=== PATIENT | male | born 1950 | race Caucasian/White ===

== ENCOUNTER → 2016-11-20 | Outpatient (CLI) | payer MEDICARE, OTHER ==
[~2016-11-20] MED LIST: ALBU0.632 IH; ASCO500T6 PO; ASP81TEC PO; ASPI-86; ATOR20TA66 PO; B CO1CAP PO; BUDE6HFA IH; C250T; CETI10TA20 PO; CHOL500044 PO; CLOB15CR3 TP; COQ10 PO; ECON30CR9 TP; FEXO180T84 PO; FINA5TAB6 PO; FLUT16SP22 NSEACH; GNT.3OP5 OP; GUAI118L16 PO; HYDR-3584 PO; HYDR480S10 PO; IBUP-1779 PO; IBUP-30 PO; LA/L175C; LISI1TAB; MONT10TA24 PO; MULT-382 PO; MULTIVITAMIN GUMMIE PO; NAPR220T76; OMEG1CAP PO; OMEP20CA6; OMEP40CA36 PO; OMG1KC; PRAV40TA PO; RT-ALBUTEROL SULF 2.5 MG/3 ML PRE-MIX VIAL INH ONE; TAMS0.4C2 PO; TRAM-42 PO; VALS1TAB76 PO; VITAMIN C GUMMIE PO; [UNRECOGNIZED DRUG - CODE] PO
--- OUTSIDE RECORDS SUMMARY | 2016-11-20 12:27 | XMS REPORT | Continuity of Care Document ---
Author Author [facility] Organization [facility] Address Unknown Phone Unavailable Care Team Providers Care Contracting Specialist Name Role Phone PCP Unavailable Source Comments Some departments are not documenting in the electronic medical record. If you do not see the information that you expected, contact Release of Information in the Health Information Management department at [phone] for further assistance in locating additional records.[facility] Active Allergies and Adverse Reactions Allergen Noted Date Severity Reactions Comments Lamisil 04/27/2015 Medium RASH minocycline in combination Lipitor 04/27/2015 Low COUGH Current Medications Prescription Sig. Disp. Refills Start End Date Status Date fexofenadine(+) (COSME) Take 180 mg by mouth Active 180 mg tablet daily. aspirin EC 81 mg tablet Take 81 mg by mouth Active daily. clobetasol (TEMOVATE) Apply to affected area Active 0.05 % topical cream twice daily. Coenzyme Q10 400 mg cap Take 400 mg by mouth. Active finasteride (PROSCAR) 5 Take 5 mg by mouth daily. Active mg tablet fluticasone (FLONASE) 50 Apply 2 Sprays to each Active mcg/actuation nasal spray nostril as directed daily. ibuprofen (MOTRIN) 600 mg Take 600 mg by mouth Active tablet every 6 hours as needed for Pain. naproxen sodium(+) Take 220 mg by mouth. Active (ALEVE) 220 mg tablet Indications: PRN [place]-3 Acid Ethyl Esters Take 2 g by mouth daily. Active (LOVAZA) 1 gram cap montelukast (SINGULAIR) Take 10 mg by mouth at Active 10 mg tablet bedtime daily. multivit with min-folic Take by mouth. Active acid 200 mcg chew nystatin (MYCOSTATIN) Apply to affected area Active 100,000 unit/g topical twice daily. cream omeprazole DR(+) Take 40 mg by mouth Active (PRILOSEC) 40 mg capsule daily. pravastatin (PRAVACHOL) Take 40 mg by mouth Active 40 mg tablet daily. budesonide/formoterol Inhale 2 Puffs by mouth Active (SYMBICORT) 160/4.5 mcg twice daily. HFAA inhalation tamsulosin (FLOMAX) 0.4 Take 0.4 mg by mouth Active mg capsule daily after dinner. valsartan/hydrochlorothia Take by mouth daily. Active zide (DIOVAN HCT) 160/25 mg tablet calcium phosphate-vitamin Take by mouth. Active D2 100 mg calcium -100 unit chew VITAMIN D-3 5,000 unit Take by mouth. Active tab hydrOXYzine (ATARAX) 10 Take 10 mg by mouth three Active mg tablet times daily as needed for Itching. triamcinolone acetonide Apply to affected area Active (KENALOG) 0.1 % topical twice daily. cream Active Problems Not on file Social History Tobacco Use Types Packs/Day Years Used Date Never Smoker Smokeless Tobacco: Never Used Alcohol Use Drinks/Week oz/Week Comments No 0 Standard 0.0 drinks or equivalent Last Filed Vital Signs Vital Sign Reading Time Taken Blood Pressure - - Pulse - - Temperature - - Respiratory Rate - - Height 1.727 m (5' 8") 04/27/2015 2:23 PM CDT Weight 115.214 kg (254 lb) 04/27/2015 2:23 PM CDT Body Mass Index 38.63 04/27/2015 2:23 PM CDT Oxygen Saturation - - Plan of Care Health Maintenance Due Date Last Done Comments Physical (Comprehensive) 1955 Exam Pertussis Vaccine 1959 Tetanus Vaccine 1965 Colorectal Cancer 1998 Screening Shingles Vaccine 2008 Prevnar/Pneumovax (#1) 2013 Influenza Vaccine 05/23/2016 Results from Last 3 Months Not on file
== END ==
LOC: RT 12:23
PROVIDERS: ATTEND Nurse Practitioner Family
DX: J45.909 Unspecified asthma, uncomplicated (principal); R06.00 Dyspnea, unspecified
CPT/HCPCS: 94060; 94640; 94726; 94729

== ENCOUNTER → 2017-10-01 | Outpatient (CLI) | payer MEDICARE, OTHER ==
[~2017-10-01] MED LIST changes: -RT-ALBUTEROL SULF 2.5 MG/3 ML PRE-MIX VIAL INH ONE
== END ==
LOC: LAB 10:58
PROVIDERS: ATTEND Urology
DX: N40.1 Benign prostatic hyperplasia with lower urinary tract symptoms (principal)
CPT/HCPCS: 36415; 84153

== ENCOUNTER → 2018-04-20 | Outpatient (CLI) | payer MEDICARE, OTHER | LOC: LAB 13:54 | PROVIDERS: ATTEND Urology | DX: R97.20 Elevated prostate specific antigen [PSA] (principal) | CPT/HCPCS: 36415; 84153 ==

== ENCOUNTER 2019-07-22 15:10 | Outpatient (CLI) | payer MEDICARE, OTHER ==
[~2019-07-22] VITALS: Ht 172.7 cm; Wt 120.5 kg
[2019-07-22] MEDS ORDERED: FEXO-46 PO (15:23)
[2019-07-22] MEDS ORDERED: OMEP40CA36 PO (15:23)
[2019-07-22] MEDS ORDERED: LOSA1TAB23 PO (15:23)
[2019-07-22] MEDS ORDERED: ASPI-999 PO (15:23)
[2019-07-22] MEDS ORDERED: BUDE10.2 IH (15:23)
[2019-07-22] MEDS ORDERED: MULT-178 PO (15:23)
[2019-07-22] MEDS ORDERED: VITA-93 PO (15:23)
[2019-07-22] MEDS ORDERED: OMEG1CAP PO (15:23)
[2019-07-22] MEDS ORDERED: UBID100C17 PO (15:23)
[2019-07-22] MEDS ORDERED: MONT10TA24 PO (15:23)
[2019-07-22] MEDS ORDERED: NF-SOLIF5T PO (15:26)
== END 2019-07-22 15:25 | disposition home or self-care (01) ==
LOC: PREOP 15:10
PROVIDERS: ATTEND Surgery
DX: Z01.818 Encounter for other preprocedural examination (principal)

== ENCOUNTER → 2019-10-12 | Outpatient (CLI) | payer MEDICARE, OTHER ==
[~2019-10-12] MED LIST changes: +ASPI-999 PO; +BUDE10.2 IH; +FEXO-46 PO; +LOSA1TAB23 PO; +MULT-178 PO; +NF-SOLIF5T PO; +OMEP40CA27 PO; +UBID100C17 PO; +VITA-93 PO
== END ==
LOC: LAB 16:17
PROVIDERS: ATTEND Urology
DX: N40.0 Benign prostatic hyperplasia without lower urinary tract symptoms (principal)
CPT/HCPCS: 36415; 84153

== ENCOUNTER → 2020-06-13 | Outpatient (CLI) | payer MEDICARE, OTHER ==
[~2020-06-13] MED LIST changes: +ASCO500T17 PO; -ASCO500T6 PO; -CETI10TA20 PO; +CETI10TA49 PO; +MONT10TA26 PO
== END ==
LOC: LABNPT 05:56
PROVIDERS: ATTEND Family Medicine
DX: U07.1 COVID-19 (principal); J06.9 Acute upper respiratory infection, unspecified; K29.70 Gastritis, unspecified, without bleeding
CPT/HCPCS: 87635

== ENCOUNTER 2020-06-16 08:58 | Inpatient (IN) | payer MEDICARE, OTHER ==
[~2020-06-16] VITALS: Ht 172 cm; Wt 122.6 kg
[2020-06-16] VITALS (13 sets, daily range): BP systolic 102–160; BP diastolic 61–90
[2020-06-16] MEDS ORDERED: NS IV 1000 ML 1,000 ML ONE (09:13)
[2020-06-16] MEDS ORDERED: NS IV 1000 ML 1,000 ML IV SCH ×3 (09:39→13:15)
[2020-06-16 09:45] LABS: BASOPHILS % (AUTO) 0 % (0-10); HEMOGLOBIN 12.9 g/dL (13.3-17.7); PLATELET COUNT 138 10^3/uL (130-400)
[2020-06-16 09:47] LABS: EOSINOPHILS % (AUTO) 0 % (0-10); HEMATOCRIT 37 % (40-54); LYMPHOCYTES # (AUTO) 0.6 10^3/uL (1.0-4.0); LYMPHOCYTES % (AUTO) 9 % (12-44); MEAN CORPUSCULAR HEMOGLOBIN 30 pg (25-34); MEAN CORPUSCULAR HGB CONC 35 g/dL (32-36); MEAN CORPUSCULAR VOLUME 87 fL (80-99); MEAN PLATELET VOLUME 11.4 fL (9.0-12.2); MONOCYTES # (AUTO) 0.4 10^3/uL (0.0-1.0); MONOCYTES % (AUTO) 7 % (0-12); NEUTROPHILS # (AUTO) 5.2 10^3/uL (1.8-7.8); NEUTROPHILS % (AUTO) 83 % (42-75); WHITE BLOOD COUNT 6.3 10^3/uL (4.3-11.0)
[2020-06-16] MEDS ORDERED: LACTATED RINGERS 1,000 ML IV ONE ×3 (09:48→14:17)
--- NOTE | 2020-06-16 09:50 | NUR ---
B/P 70/54 DR NOTIFIED AND 2ND LITER OF FLUIDS TO BE STARTED
[2020-06-16 09:52] LABS: ALBUMIN 3.5 GM/DL (3.2-4.5); POTASSIUM 2.8 MMOL/L (3.6-5.0)
[2020-06-16 09:53] LABS: CALCIUM 8.1 MG/DL (8.5-10.1)
[2020-06-16 09:55] LABS: TOTAL PROTEIN 6.5 GM/DL (6.4-8.2)
[2020-06-16 09:56] LABS: BILIRUBIN,TOTAL 0.8 MG/DL (0.1-1.0)
[2020-06-16 09:58] LABS: CREATININE SERUM 1.39 MG/DL (0.60-1.30); FIBRIN DEGRADATION PRODUCTS 0.88 UG/ML (0.00-0.49); PROTHROMBIN TIME PATIENT 13.3 SEC (12.2-14.7)
--- NOTE | 2020-06-16 10:09 | NUR ---
ORAL TEMP AT THIS X. 99.3
[2020-06-16] MEDS ORDERED: POTASSIUM CL 10MEQ/50ML IVPB 50 ML IV ONE (10:15)
[2020-06-16] MEDS ORDERED: KETOROLAC 30 MG/ML VIAL IVP ONE (10:15)
--- NOTE | 2020-06-16 10:34 | Diagnostic Imaging Report ---
INDICATION: Sepsis, COVID Portable chest 10:13 AM There is infiltrate in the central portion of left lung. Right lung is clear. There are no effusions or pneumothoraces. IMPRESSION: Patchy infiltrate left midlung consistent with pneumonia Dictated by: Dictated on workstation # [id number]
[2020-06-16] MEDS ORDERED: HOLD METFORMIN - RECEIVED CONTRAST 20 ML VIAL IV SCH (10:45)
[2020-06-16] MEDS ORDERED: NS 100 ML (IVPB) BAG IV ONE (10:45)
[2020-06-16] MEDS ORDERED: CEFEPIME INJECTION 2,000 MG in WATER (STERILE) FOR INJECTION 20 ML IV ONE (10:45)
[2020-06-16] MEDS ORDERED: CATHETER FLUSH 10 ML SYR IV PRN ×2 (10:45→13:15)
[2020-06-16] MEDS ORDERED: IOHEXOL 350 MG/ML 100 ML (OMNIPAQUE 350) VIAL IV ONE (10:45)
--- NOTE | 2020-06-16 11:58 | ED General ---
General Chief Complaint: Cough/Cold/Flu Symptoms Stated Complaint: COVID+;HIGH FEVER Nursing Triage Note: PT TO ROOM 10 PT COVID + HAS BEEN SICK SINCE LAST FRIDAY. PT HAS HAD FEVER THIS AM, EXTREMELY WEAK AND HAS SEVERE L SHOULDER PAIN 05/01. STATE HAS LOST #20 SINCE SICK Nursing Sepsis Screen: No Definite Risk Source of Information: Patient Exam Limitations: No Limitations History of Present Illness Date Seen by Provider: Jun 16, 2020 Time Seen by Provider: 09:05 Initial Comments This 69-year-old gentleman presents to the emergency room with primary complaint of shoulder pain. However, he tested positive for COVID 19 and has been ill for a little over a week with COVID-19 symptoms. He is found to be hypotensive and hypoxic upon arrival. He is noted to have a 20 pound weight loss during his illness and states he has had very poor oral intake. He is alert and oriented at this time. He is febrile. Allergies and Home Medications Allergies Coded Allergies: minocycline (Verified Allergy, Unknown, RASH AND A COUGH, 06/13/15) Home Medications Ascorbic Acid 500 Mg Tablet, 500 MG PO DAILY, (Reported) Aspirin 81 Mg Tab.chew, 81 MG PO DAILY, (Reported) Atorvastatin Calcium 20 Mg Tablet, 20 MG PO DAILY, (Reported) Budesonide/Formoterol Fumarate 10.2 Gm Hfa.aer.ad, 2 PUFF IH BID, (Reported) Cholecalciferol (Vitamin D3) 5,000 Unit Tablet, 5,000 UNIT PO DAILY, (Reported) Fexofenadine HCl 180 Mg Tablet, 180 MG PO DAILY, (Reported) Fluticasone Propionate 16 Gm [place].susp, 2 SPR NSEACH BID, (Reported) Hydroxyzine HCl 10 Mg Tablet, 10 MG PO QID PRN for ITCHING, (Reported) Ibuprofen 400 Mg Tablet, 400 MG PO Q6H PRN for PAIN, (Reported) Losartan/Hydrochlorothiazide 1 Each Tablet, 1 EACH PO DAILY, (Reported) Montelukast Sodium 10 Mg Tablet, 10 MG PO HS, (Reported) Multivitamin 1 Each Tablet, 1 EACH PO DAILY, (Reported) [place]-3 Acid Ethyl Esters 1 Gm Capsule, 1 GM PO BID, (Reported) Omeprazole 40 Mg Capsule.dr, 40 MG PO DAILY, (Reported) Solifenacin Succinate 5 Mg Tablet, 5 MG PO DAILY, (Reported) Ubidecarenone 100 Mg Capsule, 100 MG PO DAILY, (Reported) Vitamin B Complex 1 Each Tablet, 1 EACH PO DAILY, (Reported) Patient Home Medication List Home Medication List Reviewed: Yes Review of Systems Review of Systems Constitutional: see HPI EENTM: other (dry mucous membranes) Respiratory: see HPI Cardiovascular: see HPI Gastrointestinal: see HPI Genitourinary: no symptoms reported Musculoskeletal: no symptoms reported Skin: no symptoms reported Psychiatric/Neurological: No Symptoms Reported Hematologic/Lymphatic: No Symptoms Reported Immunological/Allergic: no symptoms reported Past Nkguccl-Kdvigw-Rwsuhm Hx Past Med/Social Hx: Reviewed Nursing Past Med/Soc Hx Patient Social History Alcohol Use: Denies Use Recreational Drug Use: No Smoking Status: Former Smoker Former Smoker, Quit: Jul 22, 1978 Recent Foreign Travel: No Contact w/Someone Who Travel: No Recent Infectious Disease Expo: No Recent Hopitalizations: No Physical Abuse: No Sexual Abuse: No Immunizations Up To Date Date of Pneumonia Vaccine: Sep 22, 2007 Date of Influenza Vaccine: Jun 22, 2019 Seasonal Allergies Seasonal Allergies: Yes Past Medical History Surgeries: Yes (ING HERNIA, HEMORRHOIDECTOMY, cyst removed from finger) Abdominal Respiratory: Yes Asthma, Sleep Apnea, COPD Currently Using CPAP: Yes Cardiac: Yes Coronary Artery Disease, High Cholesterol, Hypertension Neurological: No Genitourinary: No Gastrointestinal: Yes Gastroesophageal Reflux Musculoskeletal: Yes Arthritis Endocrine: No HEENT: No Cancer: No Psychosocial: No 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 oz. 118.256732iu; 38.00 BMI Method: General Appearance: No Apparent Distress, WD/WN HEENT: PERRL/EOMI, Normal ENT Inspection, Other (mucous membranes dry) Neck: Normal Inspection Respiratory: No Accessory Muscle Use, No Respiratory Distress, Crackles (bibasilar) Cardiovascular: Regular Rate, Rhythm, No Edema, No Murmur, Normal Peripheral Pulses Gastrointestinal: Normal Bowel Sounds, Non Tender, Soft Extremity: Normal Inspection, No Calf Tenderness, No Pedal Edema, Other ( tenderness around the musculature inferior and medial to the left scapula) Neurologic/Psychiatric: Alert, Oriented x3, No Motor/Sensory Deficits, Normal 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 Labs not consistent with sepsis Possible Source: Pulmonary Lactate Level 06/16/20 09:11: Lactic Acid Level 1.39 Time of Focused Exam: 12:35 Respiratory: Crackles (both bases), Decreased Breath Sounds Cardiovascular: Regular Rate, Rhythm, No Edema, No Murmur, Normal Peripheral Pulses Capillary Refill: Less Than 3 Seconds Peripheral Pulses: 2+ Radial Pulses (R) Skin: normal color, warm/dry Lactic Acid Level Within 3hrs of presentation: Admin fluids, Admin 30ml/kg IBW due to BMI>30, Admin ABX, Blood cultures prior to ABX's, Focus exam, Lactate level Progress/Results/Core Measures Suspected Sepsis Recent Fever Within 48 Hours: Yes Infection Criteria Present: Suspected New Infection New/Unexplained Altered Menta: No Sepsis Screen: No Definite Risk SIRS Temperature: Pulse: 62 Respiratory Rate: 20 Laboratory Tests 06/16/20 09:11: White Blood Count 6.3 Blood Pressure 101 /64 Mean: 76 06/16/20 09:11: Lactic Acid Level 1.39 Laboratory Tests 06/16/20 09:11: Creatinine 1.39H, INR Comment 1.0, Platelet Count 138, Total Bilirubin 0.8 Results/Orders Lab Results Laboratory Tests Test 06/16/20 09:11 Range/Units White Blood Count 6.3 4.3-11.0 10^3/uL Red Blood Count 4.30 4.30-5.52 10^6/uL Hemoglobin 12.9 L 13.3-17.7 g/dL Hematocrit 37 L 40-54 % Mean Corpuscular Volume 87 80-99 fL Mean Corpuscular Hemoglobin 30 25-34 pg Mean Corpuscular Hemoglobin Concent 35 32-36 g/dL Red Cell Distribution Width 12.9 10.0-14.5 % Platelet Count 138 130-400 10^3/uL Mean Platelet Volume 11.4 9.0-12.2 fL Immature Granulocyte % (Auto) 1 % Neutrophils (%) (Auto) 83 H 42-75 % Lymphocytes (%) (Auto) 9 L 12-44 % Monocytes (%) (Auto) 7 0-12 % Eosinophils (%) (Auto) 0 0-10 % Basophils (%) (Auto) 0 0-10 % Neutrophils # (Auto) 5.2 1.8-7.8 10^3/uL Lymphocytes # (Auto) 0.6 L 1.0-4.0 10^3/uL Monocytes # (Auto) 0.4 0.0-1.0 10^3/uL Eosinophils # (Auto) 0.0 0.0-0.3 10^3/uL Basophils # (Auto) 0.0 0.0-0.1 10^3/uL Immature Granulocyte # (Auto) 0.0 0.0-0.1 10^3/uL Prothrombin Time 13.3 12.2-14.7 SEC INR Comment 1.0 0.8-1.4 Activated Partial Thromboplast Time 36 H 24-35 SEC D-Dimer 0.88 H 0.00-0.49 UG/ML Sodium Level 138 135-145 MMOL/L Potassium Level 2.8 L 3.6-5.0 MMOL/L Chloride Level 101 98-107 MMOL/L Carbon Dioxide Level 24 21-32 MMOL/L Anion Gap 13 5-14 MMOL/L Blood Urea Nitrogen 20 H 7-18 MG/DL Creatinine 1.39 H 0.60-1.30 MG/DL Estimat Glomerular Filtration Rate 50 BUN/Creatinine Ratio 14 Glucose Level 142 H 70-105 MG/DL Lactic Acid Level 1.39 0.50-2.00 MMOL/L Calcium Level 8.1 L 8.5-10.1 MG/DL Corrected Calcium 8.5 8.5-10.1 MG/DL Total Bilirubin 0.8 0.1-1.0 MG/DL Aspartate Amino Transf (AST/SGOT) 42 H 5-34 U/L Alanine Aminotransferase (ALT/SGPT) 33 0-55 U/L Alkaline Phosphatase 82 40-136 U/L Lactate Dehydrogenase 367 H 125-220 U/L C-Reactive Protein High Sensitivity 7.77 H 0.00-0.50 MG/DL Total Protein 6.5 6.4-8.2 GM/DL Albumin 3.5 3.2-4.5 GM/DL Procalcitonin 0.06 <0.10 NG/ML My Orders Orders - RALF BLUE MD Ns Iv 1000 Ml (Sodium Chloride 0.9%) (06/16/20 09:13) Cbc With Automated Diff (06/16/20 09:37) Comprehensive Metabolic Panel (06/16/20 09:37) Blood Culture (06/16/20 09:37) Sputum Culture (06/16/20 09:37) Urinalysis (06/16/20 09:37) Urine Culture (06/16/20 09:37) Protime With Inr (06/16/20 09:37) Partial Thromboplastin Time (06/16/20 09:37) Chest 1 View, Ap/Pa Only (06/16/20 09:37) Ed Iv/Invasive Line Start (06/16/20 09:37) Ed Iv/Invasive Line Start (06/16/20 09:37) Vital Signs Adult Sepsis Patie Q15M (06/16/20 09:37) O2 (06/16/20 09:37) Remove Rings In Anticipation O (06/16/20 09:37) Lactic Acid Analyzer (06/16/20 09:37) Procalcitonin (Pct) (06/16/20 09:37) Hs C Reactive Protein (06/16/20 09:37) LDH (06/16/20 09:37) Fibrin Degradation Products (06/16/20 09:37) Ns Iv 1000 Ml (Sodium Chloride 0.9%) (06/16/20 09:39) Lactated Ringers (Lr 1000 Ml Iv Solution (06/16/20 09:52) Lactated Ringers (Lr 1000 Ml Iv Solution (06/16/20 09:48) Potassium Cl 10meq/50ml Ivpb (Kcl 10 Meq (06/16/20 10:15) Ns Iv 1000 Ml (Sodium Chloride 0.9%) (06/16/20 10:04) Ketorolac Injection (Toradol Injection) (06/16/20 10:15) Ct Angio Chest W (06/16/20 10:41) Cefepime Injection (Maxipime Injection) (06/16/20 10:45) Iohexol Injection (Omnipaque 350 Mg/Ml 1 (06/16/20 10:45) Received Contrast (Hold Metformin- Contr (06/16/20 10:45) Sodium Chloride Flush (Catheter Flush Sy (06/16/20 10:45) Ns (Ivpb) (Sodium Chloride 0.9% Ivpb Bag (06/16/20 10:45) Dexamethasone Injection (Decadron Inje (06/16/20 12:00) Medications Given in ED Current Medications Medications Dose Ordered Sig/Sara Route Start Time Stop Time Status Last Admin Dose Admin Cefepime HCl 2000 mg/Sterile Water 20 ml @ 240 mls/hr ONCE ONCE IV 06/16/20 10:45 06/16/20 10:49 DC 06/16/20 11:23 240 MLS/HR Iohexol 100 ml ONCE ONCE IV 06/16/20 10:45 06/16/20 11:18 DC 06/16/20 11:19 100 ML Ketorolac Tromethamine 15 mg ONCE ONCE IVP 06/16/20 10:15 06/16/20 10:16 DC 06/16/20 10:22 15 MG Lactated Ringer's 1,000 ml @ 0 mls/hr Q0M ONCE IV 06/16/20 09:52 06/16/20 09:53 DC 06/16/20 09:55 1,000 MLS/HR Potassium Chloride 50 ml @ 50 mls/hr ONCE ONCE IV 06/16/20 10:15 06/16/20 11:14 DC 06/16/20 10:21 50 MLS/HR Sodium Chloride 100 ml ONCE ONCE IV 06/16/20 10:45 06/16/20 11:18 DC 06/16/20 11:19 80 ML Sodium Chloride 1,000 ml @ ud STK-MED ONCE .ROUTE 06/16/20 09:13 06/16/20 09:21 DC 06/16/20 09:20 1,000 MLS/HR Vital Signs/I&O 06/16/20 06/16/20 06/16/20 06/16/20 09:10 09:10 09:10 13:53 Temp 38.9 Pulse 62 51 Resp 20 B/P (MAP) 101/64 (76) Pulse Ox 96 96 O2 Delivery Nasal Cannula Nasal Cannula O2 Flow Rate 3.00 3.00 3.00 Capillary Refill : Less Than 3 Seconds Blood Pressure Mean: 76 Progress Note : Time: 11:55 Progress Note Patient was found to be hypoxic and hypotensive on initial assessment. He has received 2 L of IV fluid and is receiving his third liter. Blood pressure did respond and he is now normotensive. Hypokalemia was noted and is being replaced by IV potassium. Nasal cannula at 3-4 L was sufficient to resuscitate his hypoxia. Toradol was given for his shoulder pain which was helpful. Patient is being admitted to the ICU. Hypertension was felt to be related to volume status, especially since patient has lost 20 pounds since becoming ill. Septic shock was not felt likely since the protocol calcitonin and WBC were normal. Cefepime was ordered as a precaution until we can be certain that a secondary bacterial pneumonia is not present. Diagnostic Imaging Diagonstic Imaging: Xray Plain Films/CT/US/NM/MRI: chest Comments Chest x-ray viewed by me and report reviewed. See report below: NAME: SOFÍA ZAPATA [facility] REC#: [id number] PT STATUS: REG ER : 1950 PHYSICIAN: RALF BLUE MD ADMIT DATE: 06/16/20/ER Signed Date of Exam:06/16/20 CHEST 1 VIEW, AP/PA ONLY INDICATION: Sepsis, COVID Portable chest 10:13 AM There is infiltrate in the central portion of left lung. Right lung is clear. There are no effusions or pneumothoraces. IMPRESSION: Patchy infiltrate left midlung consistent with pneumonia Dictated by: Dictated on workstation # [id number] Dict: 06/16/20 1029 Trans: 06/16/20 1113 JOSE [id number] Interpreted by: CHRIS NAVARRO MD Electronically signed by: CHRIS NAVARRO MD 06/16/20 1113 Departure Communication (Admissions) Time/Spoke to Admitting Phy: 11:40 Dr. Núñez Time/Spoke to Consulting Phy: 11:45 Dr. Sykes Impression Primary Impression: COVID-19 Additional Impressions: Hypoxia Hypotension Qualified Codes: I95.89 - Other hypotension; E86.1 - Hypovolemia Hypovolemia Hypokalemia Shoulder pain Qualified Codes: M25.512 - Pain in left shoulder Disposition: ADMITTED INPATIENT Condition: Stable/Unchanged Admissions Decision to Admit Reason: Admit from ER (General) Decision to Admit/Date: Jun 16, 2020 Time/Decision to Admit Time: 09:15 Departure-Patient Inst. Referrals: MONSE FLORES DO (PCP/Family) Primary Care Physician Copy Copies To 1: MONSE FLORES JOSHUA T MD Jun 16, 2020 11:57
--- NOTE | 2020-06-16 13:05 | NUR ---
SOFÍA ZAPATA admitted to room CU1-1, with an admitting diagnosis of HYPOKIA, HYPOKALEMIA, COVID-19 +, on 06/16/20 from ER via WHEELCHAIR, accompanied by SINGH SAXENA AND PCT. SOFÍA ZAPATA introduced to surroundings, call light, bed controls, phone, TV, temperature control, lights, meal times, smoking policy, visitor policy, side rail policy, bathrooms and showers. Patient Rights given to patient in the handbook. SOFÍA ZAPATA verbalizes understanding that [facility] is not responsible for the loss or damage to any personal effects or valuables that are kept in the patients possession during their hospitalization.
[2020-06-16] MEDS ORDERED: ACETAMINOPHEN 500 MG TAB (TYLENOL) PO PRN (13:15)
[2020-06-16] MEDS ORDERED: RT-ALBUTEROL INHALER HFA (VENTOLIN HFA) 18 GM IH PRN (13:15)
[2020-06-16] MEDS ORDERED: IBUPROFEN TABLET 200 MG TAB PO PRN (13:15)
[2020-06-16] MEDS: POTASSIUM CL 10 MEQ/50 ML IVPB (PRE-MIX) IV SCH ×4 (13:18→18:19)
--- NOTE | 2020-06-16 13:58 | Pulmonary History & Physicial ---
History of Present Illness History of Present Illness Time Seen by Provider: 13:56 Date of Admission Allergies and Home Medications Allergies Coded Allergies: minocycline (Verified Allergy, Unknown, RASH AND A COUGH, 06/13/15) Home Medications Ascorbic Acid 500 Mg Tablet, 500 MG PO DAILY, (Reported) Aspirin 81 Mg Tab.chew, 81 MG PO DAILY, (Reported) Atorvastatin Calcium 20 Mg Tablet, 20 MG PO DAILY, (Reported) Budesonide/Formoterol Fumarate 10.2 Gm Hfa.aer.ad, 2 PUFF IH BID, (Reported) Cholecalciferol (Vitamin D3) 5,000 Unit Tablet, 5,000 UNIT PO DAILY, (Reported) Fexofenadine HCl 180 Mg Tablet, 180 MG PO DAILY, (Reported) Fluticasone Propionate 16 Gm [place].susp, 2 SPR NSEACH BID, (Reported) Hydroxyzine HCl 10 Mg Tablet, 10 MG PO QID PRN for ITCHING, (Reported) Ibuprofen 400 Mg Tablet, 400 MG PO Q6H PRN for PAIN, (Reported) Losartan/Hydrochlorothiazide 1 Each Tablet, 1 EACH PO DAILY, (Reported) Montelukast Sodium 10 Mg Tablet, 10 MG PO HS, (Reported) Multivitamin 1 Each Tablet, 1 EACH PO DAILY, (Reported) [place]-3 Acid Ethyl Esters 1 Gm Capsule, 1 GM PO BID, (Reported) Omeprazole 40 Mg Capsule.dr, 40 MG PO DAILY, (Reported) Solifenacin Succinate 5 Mg Tablet, 5 MG PO DAILY, (Reported) Ubidecarenone 100 Mg Capsule, 100 MG PO DAILY, (Reported) Vitamin B Complex 1 Each Tablet, 1 EACH PO DAILY, (Reported) Past Aqflsbh-[place]-Ftswpg Hx Patient Social History Alcohol Use: Denies Use Recreational Drug Use: No Smoking Status: Former Smoker Former Smoker, Quit: Jul 22, 1978 Recent Foreign Travel: No Contact w/Someone Who Travel: No Recent Infectious Disease Expo: No Recent Hopitalizations: No Physical Abuse: No Sexual Abuse: No Immunizations Up To Date Date of Pneumonia Vaccine: Jun 16, 2018 Date of Influenza Vaccine: May 16, 2020 Seasonal Allergies Seasonal Allergies: Yes Past Medical History Surgeries: Yes (ING HERNIA, HEMORRHOIDECTOMY, cyst removed from finger) Respiratory: Yes Asthma, Sleep Apnea, COPD Currently Using CPAP: Yes Cardiac: Yes Coronary Artery Disease, High Cholesterol, Hypertension Neurological: No Genitourinary: No Gastrointestinal: Yes Gastroesophageal Reflux Musculoskeletal: Yes Arthritis Endocrine: No HEENT: No Cancer: No Psychosocial: No 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 oz. 118.985659vg; 44.44 BMI Method: Respiratory: Crackles (both bases), Decreased Breath Sounds Cardiovascular: Regular Rate, Rhythm, No Edema, No Murmur, Normal Peripheral Pulses Capillary Refill: Less Than 3 Seconds Peripheral Pulses: 2+ Radial Pulses (R) Results Lab Laboratory Tests 06/16/20 09:11 Assessment/Plan Assessment/Plan Admission Dx COVID -19-- symptoms started 8 days ago -Start remdisivir and convalescent plasma -Pt understands these are EUA medications and consents to use. -Self proning -Decadron 6mg COPD -Breathing treatments -oxygen Hypokalemia -replace and repeat labs Admission Status: Inpatient Order (span 2 midnights) NILDA WHALEN DO Jun 16, 2020 13:58
[2020-06-16] MEDS ORDERED: REMDESIVIR INJ (NON-FORMULARY) 200 MG in NS (IVPB) 210 ML IV NR (14:00)
[2020-06-16] MEDS ORDERED: KCL 20 MEQ TAB (K-DUR) PO NR (14:00)
[2020-06-16] MEDS: ENOXAPARIN 40 MG/0.4 ML (LOVENOX) SYR SC SCH (14:29)
[2020-06-16] MEDS: LACTATED RINGERS 1,000 ML IV SCH ×2 (14:35→21:57)
--- NOTE | 2020-06-16 14:39 | NUR ---
THIS RN ATTEMPTED TO CALL PT'S . THE PHONE CALL WENT STRAIGHT TO VOICEMAIL. THIS RN WILL ATTEMPT TO CALL THE AGAIN AT A LATER TIME.
[2020-06-16] MEDS ORDERED: CETI10TA17 PO (15:36)
[2020-06-16] MEDS ORDERED: ASCO250T17 PO (15:36)
[2020-06-16] MEDS ORDERED: VITA1TAB17 PO (15:36)
[2020-06-16] MEDS ORDERED: ACET325C7 PO (15:36)
[2020-06-16] MEDS ORDERED: DOXA2TAB2 PO (15:36)
[2020-06-16] MEDS ORDERED: FISH1CAP15 PO (15:36)
[2020-06-16] MEDS ORDERED: ALBU18HF2 INH (15:36)
[2020-06-16] MEDS ORDERED: HYDR12.56 PO (15:36)
[2020-06-16] MEDS ORDERED: MULT-192 PO (15:36)
[2020-06-16] MEDS ORDERED: CHOL200074 PO (15:36)
--- NOTE | 2020-06-16 15:49 | NUR ---
SPOKE WITH THE PTS (TU FENG), & WENT THRU THE EXT MED HISTORY TO COMPLETE THE MED REC PTS WAS ABLE TO NAME ALL HIS MEDICATIONS WELL WHEN/HOW HE TAKES EACH [place] IS LISTED ON THE EXT MED HISTORY BUT ACCORDING TO TU FENG THIS HAS BEEN DISCONTINUED THE PT TAKING CETIRIZINE 10MG HS AND COSME 180MG DAILY PRN OTC MEDS: MTV GUMMY VIT B COMPLEX VIT C VIT D COQ10 FISH OIL COSME ASPIRIN 81 TYLENOL IBUPROFEN
[2020-06-16 20:05] LABS: ALBUMIN 3.4 GM/DL (3.2-4.5); CHLORIDE 107 MMOL/L (98-107); POTASSIUM 3.7 MMOL/L (3.6-5.0); SODIUM 140 MMOL/L (135-145)
[2020-06-16 20:08] LABS: GLUCOSE 167 MG/DL (70-105); TOTAL PROTEIN 6.3 GM/DL (6.4-8.2)
[2020-06-16 20:09] LABS: BILIRUBIN,TOTAL 0.5 MG/DL (0.1-1.0); CARBON DIOXIDE 21 MMOL/L (21-32)
[2020-06-16 20:11] LABS: ALKALINE PHOSPHATASE 78 U/L (40-136); CREATININE SERUM 1.14 MG/DL (0.60-1.30); GFR ESTIMATED > 60; PHOSPHORUS 1.5 MG/DL (2.3-4.7)
[2020-06-16 20:12] LABS: BUN/CREATININE RATIO 17
[2020-06-16 20:14] LABS: ALANINE AMINOTRANSFERASE 37 U/L (0-55); MAGNESIUM 1.5 MG/DL (1.6-2.4)
[2020-06-16] MEDS ORDERED: NS IV 500 ML 500 ML ONE (21:21)
[2020-06-17] VITALS (25 sets, daily range): BP systolic 105–155; BP diastolic 26–94
[2020-06-17] MEDS: LACTATED RINGERS 1,000 ML IV SCH (02:22)
[2020-06-17] MEDS: ENOXAPARIN 40 MG/0.4 ML (LOVENOX) SYR SC SCH ×2 (02:22→14:10)
[2020-06-17 04:39] LABS: CHLORIDE 108 MMOL/L (98-107); POTASSIUM 3.6 MMOL/L (3.6-5.0); SODIUM 142 MMOL/L (135-145)
[2020-06-17 04:40] LABS: CALCIUM 7.9 MG/DL (8.5-10.1); GLUCOSE 131 MG/DL (70-105)
[2020-06-17 04:42] LABS: CARBON DIOXIDE 22 MMOL/L (21-32)
[2020-06-17 04:44] LABS: CREATININE SERUM 0.91 MG/DL (0.60-1.30); GFR ESTIMATED > 60; PHOSPHORUS 2.1 MG/DL (2.3-4.7)
[2020-06-17 04:45] LABS: BUN/CREATININE RATIO 20
[2020-06-17 04:46] LABS: MAGNESIUM 1.5 MG/DL (1.6-2.4)
[2020-06-17 04:49] LABS: BASOPHILS % (AUTO) 0 % (0-10); EOSINOPHILS % (AUTO) 0 % (0-10); HEMATOCRIT 34 % (40-54); HEMOGLOBIN 11.5 g/dL (13.3-17.7); LYMPHOCYTES # (AUTO) 0.7 10^3/uL (1.0-4.0); LYMPHOCYTES % (AUTO) 16 % (12-44); MEAN CORPUSCULAR HEMOGLOBIN 30 pg (25-34); MEAN CORPUSCULAR HGB CONC 34 g/dL (32-36); MEAN CORPUSCULAR VOLUME 89 fL (80-99); MEAN PLATELET VOLUME 11.6 fL (9.0-12.2); MONOCYTES # (AUTO) 0.4 10^3/uL (0.0-1.0); MONOCYTES % (AUTO) 10 % (0-12); NEUTROPHILS # (AUTO) 3.3 10^3/uL (1.8-7.8); NEUTROPHILS % (AUTO) 74 % (42-75); PLATELET COUNT 136 10^3/uL (130-400); WHITE BLOOD COUNT 4.4 10^3/uL (4.3-11.0)
--- NOTE | 2020-06-17 05:25 | Pulmonary Progress Note ---
Subjective Time Seen by a Provider: 05:23 Subjective/Events-last exam No complications noted. Sepsis Event Evaluation Height, Weight, BMI Height: 5'8.00" Weight: 262lbs. oz. 118.829334au; 44.44 BMI Method: Focused Exam Lactate Level 06/16/20 09:11: Lactic Acid Level 1.39 Time of Focused Exam: 12:35 Exam Exam Vital Signs Date Time Temp Pulse Resp B/P (MAP) Pulse Ox O2 Delivery O2 Flow Rate FiO2 06/17/20 05:00 46 31 136/38 (70) 94 Nasal Cannula 3.00 06/17/20 04:00 46 15 137/73 (94) 95 Nasal Cannula 3.00 06/17/20 03:00 42 26 134/78 (96) 90 Nasal Cannula 3.00 06/17/20 02:00 48 19 145/74 (97) 94 Nasal Cannula 3.00 06/17/20 01:00 42 26 129/78 (95) 95 Nasal Cannula 3.00 06/17/20 01:00 60 06/17/20 00:49 36.6 52 18 135/71 93 Nasal Cannula 3.00 06/17/20 00:00 93 Nasal Cannula 3.00 06/17/20 00:00 36.6 06/17/20 00:00 62 14 135/71 (92) 94 Nasal Cannula 3.00 06/16/20 23:00 56 17 137/83 (101) 93 Nasal Cannula 3.00 06/16/20 22:44 Nasal Cannula 3.00 06/16/20 22:03 36.4 44 16 137/80 95 Nasal Cannula 1.00 06/16/20 22:00 49 22 137/80 (99) 90 Nasal Cannula 1.00 06/16/20 21:47 36.6 51 18 160/90 92 Nasal Cannula 1.00 06/16/20 21:00 51 32 160/90 (113) 93 Nasal Cannula 1.00 06/16/20 20:04 36.4 54 18 151/85 (107) 91 Nasal Cannula 1.00 06/16/20 20:00 91 Nasal Cannula 1.00 06/16/20 19:00 56 12 138/82 (100) 94 Nasal Cannula 1.00 06/16/20 19:00 57 06/16/20 18:52 94 1.00 06/16/20 18:01 37.1 Nasal Cannula 1.00 06/16/20 18:00 58 6 124/61 (82) 94 Nasal Cannula 1.00 06/16/20 17:00 59 16 102/63 (76) 93 Nasal Cannula 1.00 06/16/20 16:00 58 19 114/85 (95) 93 Nasal Cannula 1.00 06/16/20 16:00 94 Nasal Cannula 1.00 24 06/16/20 15:00 36.6 55 20 142/80 (100) 94 1.00 06/16/20 14:00 54 27 118/80 (93) 95 Nasal Cannula 2.00 06/16/20 13:56 96 Nasal Cannula 1.00 06/16/20 13:53 51 06/16/20 13:15 51 12 134/81 (98) 95 Nasal Cannula 2.00 06/16/20 12:55 54 18 103/68 98 Nasal Cannula 3.00 06/16/20 09:10 3.00 06/16/20 09:10 96 Nasal Cannula 3.00 06/16/20 09:10 38.9 62 20 101/64 (76) 96 Nasal Cannula 3.00 I & O 06/17/20 07:00 Intake Total 4570 ml Output Total 750 ml Balance 3820 ml Height & Weight Height: 5'8.00" Weight: 262lbs. oz. 118.248938bj; 44.44 BMI Method: General Appearance: No Apparent Distress, WD/WN HEENT: PERRL/EOMI, Normal ENT Inspection, Other (mucous membranes dry) Neck: Normal Inspection Respiratory: Crackles (both bases), Decreased Breath Sounds Cardiovascular: Regular Rate, Rhythm, No Edema, No Murmur, Normal Peripheral Pulses Capillary Refill: Greater Than 3 Seconds Peripheral Pulses: 2+ Radial Pulses (R) Extremity: Normal Inspection, No Calf Tenderness, No Pedal Edema, Other (t enderness around the musculature inferior and medial to the left scapula) Neurologic/Psychiatric: Alert, Oriented x3, No Motor/Sensory Deficits, Normal Mood/Affect, certified 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 -Self proning -Decadron 6mg Bradycardia - down into 30's -Consult cardiology -Check Troponins, and EKG COPD -Breathing treatments -oxygen Hypokalemia -replace and repeat labs NILDA WHALEN DO Jun 17, 2020 05:25
[2020-06-17] MEDS ORDERED: KCL 20 MEQ TAB (K-DUR) PO ONE (07:00)
[2020-06-17] MEDS: MAGNESIUM 1 GM/100 ML IVPB 100 ML IV SCH ×2 (07:54→07:55)
[2020-06-17] MEDS ORDERED: PANTOPRAZOLE 40 MG (PROTONIX) VIAL IV SCH (09:00)
[2020-06-17] MEDS ORDERED: PANTOPRAZOLE 40 MG (PROTONIX) TAB PO SCH (09:00)
[2020-06-17] MEDS: CEFEPIME 2,000 MG/SWFI 20 ML IV PUSH IV SCH ×4 (09:44→20:57)
[2020-06-17] MEDS: TROSPIUM 20 MG (SANCTURA) TAB PO SCH ×2 (09:45→15:40)
[2020-06-17] MEDS: FLUTICASONE NASAL SPRAY (FLONASE) 16 GM BTL NS SCH ×2 (09:56→21:12)
[2020-06-17] MEDS: ASPIRIN 81 MG CHEW (CHILDREN'S ASA) PO SCH (09:56)
[2020-06-17] MEDS: VITAMIN D3 25 MCG (1,000 UNITS) TABLET PO SCH (09:56)
[2020-06-17] MEDS ORDERED: CEFEPIME 2,000 MG/SWFI 20 ML IV PUSH IV SCH ×2 (10:00)
[2020-06-17] MEDS: REMDESIVIR INJ (NON-FORMULARY) 100 MG in NS (IVPB) 230 ML IV SCH (14:09)
--- NOTE | 2020-06-17 16:19 | Consultation-Cardiology ---
HPI-Cardiology Cardiology Consultation: Date of Consultation 06/17/20 Date of Admission Attending Physician Sarika Hodges DO Admitting Physician Sarika Hodges DO Consulting Physician Michael GAR MD HPI: Time Seen by a Provider: 14:00 Chief Complaint: bradycardia this is a 69-year-old gentleman who has history of COPD. He presented with shoulder discomfort. He has been having COVID-19 symptoms for around a weak. He was found to be COVID-19 positive. He was hypotensive and hypoxic on arrival. Started on oxygen through nasal cannula which improved oxygenation. patient is a former smoker. Brother has history of coronary disease. Review of Systems-Cardiology Review of Systems Constitutional: As described under HPI; No As described under HPI, No no symptoms reported, No chills, No fever, No lightheadedness; weight loss Eyes: No As described under HPI, No no symptoms reported, No blindness, No blurred vision, No contact lenses, No drainage, No decreased acuity, No foreign body sensation, No pain, No vision change Ears/Nose/Throat: No As described under HPI, No no symptoms reported, No chronic hearing loss, No ear discharge, No ear pain, No nasal drainage, No ulcerations Respiratory: No no symptoms reported; As described under HPI; No As described under HPI, No cough, No orthopnea; shortness of breath; No SOB with excertion Cardiovascular: No no symptoms reported; As described under HPI; No As described under HPI, No chest pain, No edema, No irregular heart rate, No lightheadedness, No palpitations Gastrointestinal: No no symptoms reported, No As described under HPI, No abdomen distended, No abdominal pain, No blood streaked bowels, No constipation, No diarrhea, No nausea, No vomiting, No stool coloration changes Genitourinary: No As described under HPI, No burning, No dysuria, No discharge, No frequency, No flank pain, No hematuria, No urgency Skin: No rash, No skin related problems, No ulcerations Psychiatric/Neurological: No anxiety, No depression, No seizure, No focal weakness, No syncope Hematologic: No bleeding abnormalities [id number] Hx Patient Social History Alcohol Use: Denies Use Recreational Drug Use: No Smoking Status: Former Smoker Former smoker/When Quit: May 31, 1982 Recent Foreign Travel: No Recent Infectious Disease Expo: No Hospitalization with Isolation: Denies Immunizations Up To Date Date of Pneumonia Vaccine: Jun 16, 2018 Date of Influenza Vaccine: May 16, 2020 Past Medical History PMH As described under Assessment. Family Medical History Family History: Cardiovascular disease G8 BROTHER Allergies and Home Medications Allergies Coded Allergies: minocycline (Verified Allergy, Unknown, RASH AND A COUGH, 06/13/15) Home Medications Acetaminophen 325 Mg Capsule, 650 MG PO Q6H PRN for PAIN-MILD (1-4), (Reported) Albuterol Sulfate 18 Gm Hfa.aer.ad, 2 PUFF INH Q4H PRN for SHORTNESS OF BREATH, (Reported) Ascorbic Acid 250 Mg Tab.chew, 250 MG PO DAILY, (Reported) Aspirin 81 Mg Tab.chew, 81 MG PO DAILY, (Reported) Atorvastatin Calcium 20 Mg Tablet, 20 MG PO DAILY, (Reported) Budesonide/Formoterol Fumarate 10.2 Gm Hfa.aer.ad, 2 PUFF IH BID, (Reported) Cetirizine HCl 10 Mg Tablet, 10 MG PO HS, (Reported) Cholecalciferol (Vitamin D3) 50 Mcg Capsule, 50 MCG PO DAILY, (Reported) Doxazosin Mesylate 2 Mg Tablet, 2 MG PO DAILY, (Reported) Fexofenadine HCl 180 Mg Tablet, 180 MG PO DAILY PRN for ALLERGY SYMPTOMS, (Reported) Fish Oil/Dha/Epa 1 Each Capsule, 1 EACH PO DAILY, (Reported) Fluticasone Propionate 16 Gm Zuni.susp, 2 SPR NSEACH BID, (Reported) Hydrochlorothiazide 12.5 Mg Tablet, 12.5 MG PO DAILY, (Reported) Ibuprofen 400 Mg Tablet, 400 MG PO Q6H PRN for PAIN, (Reported) Montelukast Sodium 10 Mg Tablet, 10 MG PO HS, (Reported) Multivitamin 1 Each Tab.chew, 1 EACH PO DAILY, (Reported) Omeprazole 40 Mg Capsule.dr, 40 MG PO DAILY, (Reported) Solifenacin Succinate 5 Mg Tablet, 5 MG PO DAILY, (Reported) Ubidecarenone 100 Mg Capsule, 100 MG PO DAILY, (Reported) Vitamin B Complex 1 Each Tablet, 1 EACH PO DAILY, (Reported) Patient Home Medication List Home Medication List Reviewed: Yes Physical Exam-Cardiology Physical Exam Vital Signs/I&O 06/17/20 06/17/20 06/17/20 06/17/20 05:00 06:00 07:00 07:00 Pulse 46 46 54 54 Resp 31 24 37 B/P (MAP) 136/38 (70) 149/94 (112) 149/85 (106) Pulse Ox 94 95 96 O2 Delivery Nasal Cannula Nasal Cannula Nasal Cannula O2 Flow Rate 3.00 3.00 1.00 06/17/20 06/17/20 06/17/20 06/17/20 07:29 07:50 07:51 08:53 Temp 36.2 Pulse 56 Resp 24 B/P (MAP) 155/26 (69) Pulse Ox 94 97 95 O2 Delivery Nasal Cannula Nasal Cannula Nasal Cannula O2 Flow Rate 3.00 1.00 1.00 06/17/20 06/17/20 06/17/20 06/17/20 09:00 10:00 11:00 12:00 Pulse 56 50 50 58 Resp 24 29 21 18 B/P (MAP) 155/76 (102) 128/63 (84) 136/78 (97) 132/77 (95) Pulse Ox 92 92 92 93 O2 Delivery Nasal Cannula Nasal Cannula Nasal Cannula Nasal Cannula O2 Flow Rate 1.00 1.00 1.00 1.00 06/17/20 06/17/20 06/17/20 06/17/20 12:04 12:04 12:21 13:00 Temp 36.0 Pulse 56 55 Resp 22 B/P (MAP) 132/76 (94) Pulse Ox 94 94 O2 Delivery Nasal Cannula Nasal Cannula O2 Flow Rate 1.00 1.00 06/17/20 06/17/20 14:19 16:08 Pulse 48 Resp 13 B/P (MAP) 134/93 (107) Pulse Ox 96 94 O2 Delivery Nasal Cannula Nasal Cannula O2 Flow Rate 1.00 1.00 06/17/20 00:00 Intake Total 1400 ml Output Total 600 ml Balance 800 ml Capillary Refill : Greater Than 3 SecondsGreater Than 3 Seconds Constitutional: AAO x 3, well-developed Cardiovascular: other (not in respiratory distress.) Neurologic/Psychiatric: no motor/sensory deficits, alert, normal mood/affect, oriented x 3 Skin: normal color, warm/dry Data Review Labs Laboratory Tests 06/16/20 19:40: Sodium Level 140, Potassium Level 3.7, Chloride Level 107, Carbon Dioxide Level 21, Anion Gap 12, Blood Urea Nitrogen 19H, Creatinine 1.14, Estimat Glomerular Filtration Rate > 60, BUN/Creatinine Ratio 17, Glucose Level 167H, Calcium Level 8.0L, Corrected Calcium 8.5, Phosphorus Level 1.5L, Magnesium Level 1.5L, Total Bilirubin 0.5, Aspartate Amino Transf (AST/SGOT) 45H, Alanine Aminotransferase (ALT/SGPT) 37, Alkaline Phosphatase 78, Total Protein 6.3L, Albumin 3.4 06/17/20 04:15: Sodium Level 142, Potassium Level 3.6, Chloride Level 108H, Carbon Dioxide Level 22, Anion Gap 12, Blood Urea Nitrogen 18, Creatinine 0.91, Estimat Glomerular Filtration Rate > 60, BUN/Creatinine Ratio 20, Glucose Level 131H, Calcium Level 7.9L, Phosphorus Level 2.1L, Magnesium Level 1.5L, White Blood Count 4.4, Red Blood Count 3.80L, Hemoglobin 11.5L, Hematocrit 34L, Mean Corpuscular Volume 89, Mean Corpuscular Hemoglobin 30, Mean Corpuscular Hemoglobin Concent 34, Red Cell Distribution Width 13.1, Platelet Count 136, Mean Platelet Volume 11.6, Immature Granulocyte % (Auto) 1, Neutrophils (%) (Auto) 74, Lymphocytes (%) (Auto) 16, Monocytes (%) (Auto) 10, Eosinophils (%) (Auto) 0, Basophils (%) (Auto) 0, Neutrophils # (Auto) 3.3, Lymphocytes # (Auto) 0.7L, Monocytes # (Auto) 0.4, Eosinophils # (Auto) 0.0, Basophils # (Auto) 0.0, Immature Granulocyte # (Auto) 0.0 06/17/20 04:51: Troponin I < 0.028 06/17/20 11:58: Troponin I < 0.028 Microbiology 06/16/20 Blood Culture - Preliminary, Resulted No growth ECG Impression ECG Initial ECG Rhythm: S.Law, PVC A/P-Cardiology Assessment/Admission Diagnosis acute respiratory failure, Active COVID-19 infection, Sinus bradycardia, PVCs, COPD, Hypokalemia, Weight loss, moderate CAD Plan acute respiratory failure, Active COVID-19 infection, on remdesivir, decadron, plasma. prone position. defer to Dr sykes Sinus bradycardia, sinus node depression due to COVID 19 infection. no acute symptoms. continue to follow clinically. PVCs, Cannot treat with BB secondary to sinus bradycardia. Continue to watch clinically. If significant ectopy, may need amiodarone. COPD, Defer to Dr Sykes. Hypokalemia, unclear etiology. Weight loss, defer to primary team. moderate CAD, negative EKG and serial troponin. Previous Cath in 2013 showed moderate LAD disease. Thank you for your consultation. Please call me if you have any questions. Ariel Gar MD, FACP, FACC, FSCAI, FHRS, CCDS Interventional Cardiology Cardiac Electrophysiology Vascular Medicine and Endovascular Interventions Clinical Quality Measures DVT/VTE Risk/Contraindication: Risk Factor Score Per Nursin RFS Level Per Nursing on Admit: 3=High Michael GAR MD Jun 17, 2020 16:19
[2020-06-17] MEDS: ADVAIR HFA 115/21 MCG INHALER 8 GM IH SCH (19:30)
[2020-06-17] MEDS: MONTELUKAST 10 MG (SINGULAIR) TAB PO SCH (20:56)
[2020-06-18] VITALS (15 sets, daily range): BP systolic 115–158; BP diastolic 67–112
[2020-06-18] MEDS: ENOXAPARIN 40 MG/0.4 ML (LOVENOX) SYR SC SCH ×2 (01:19→14:59)
--- NOTE | 2020-06-18 04:18 | Pulmonary Progress Note ---
Subjective Time Seen by a Provider: 04:16 Subjective/Events-last exam No complications noted. Sepsis Event Evaluation Height, Weight, BMI Height: 5'8.00" Weight: 262lbs. oz. 118.102533aw; 44.44 BMI Method: Focused Exam Lactate Level 06/16/20 09:11: Lactic Acid Level 1.39 Time of Focused Exam: 12:35 Exam Exam Vital Signs Date Time Temp Pulse Resp B/P (MAP) Pulse Ox O2 Delivery O2 Flow Rate FiO2 06/18/20 04:00 39 23 127/69 (88) 95 Nasal Cannula 3.00 06/18/20 03:58 91 Nasal Cannula 3.00 06/18/20 03:00 38 16 145/72 (96) 92 Nasal Cannula 3.00 06/18/20 02:00 39 26 121/81 (94) 95 Nasal Cannula 3.00 06/18/20 01:00 45 28 115/71 (86) 94 Nasal Cannula 3.00 06/18/20 01:00 50 06/18/20 00:00 43 21 125/67 (86) 93 Nasal Cannula 3.00 06/17/20 23:39 36.2 06/17/20 23:39 91 Nasal Cannula 3.00 06/17/20 23:00 43 28 111/71 (84) 93 Nasal Cannula 3.00 06/17/20 22:00 47 20 117/65 (82) 93 Nasal Cannula 3.00 06/17/20 21:00 53 10 124/62 (82) 90 Nasal Cannula 3.00 06/17/20 20:00 60 13 113/67 (82) 91 Nasal Cannula 3.00 06/17/20 19:42 91 Nasal Cannula 1.00 06/17/20 19:42 Nasal Cannula 3.00 06/17/20 19:38 36.1 06/17/20 19:30 94 Nasal Cannula 2.00 06/17/20 19:00 52 06/17/20 19:00 51 14 112/55 (74) 91 Nasal Cannula 1.00 06/17/20 18:00 50 17 145/88 (107) 94 Nasal Cannula 1.00 06/17/20 17:00 36.4 06/17/20 17:00 60 25 105/88 (94) 92 Nasal Cannula 1.00 06/17/20 16:08 94 Nasal Cannula 1.00 06/17/20 16:00 46 30 141/78 (99) 91 Nasal Cannula 1.00 06/17/20 15:00 49 14 131/76 (94) 93 Nasal Cannula 1.00 06/17/20 14:19 48 13 134/93 (107) 96 Nasal Cannula 1.00 06/17/20 13:00 55 22 132/76 (94) 94 Nasal Cannula 1.00 06/17/20 12:21 56 06/17/20 12:04 94 Nasal Cannula 1.00 06/17/20 12:04 36.0 06/17/20 12:00 58 18 132/77 (95) 93 Nasal Cannula 1.00 06/17/20 11:00 50 21 136/78 (97) 92 Nasal Cannula 1.00 06/17/20 10:00 50 29 128/63 (84) 92 Nasal Cannula 1.00 06/17/20 09:00 56 24 155/76 (102) 92 Nasal Cannula 1.00 06/17/20 08:53 56 24 155/26 (69) 95 Nasal Cannula 1.00 06/17/20 07:51 97 Nasal Cannula 1.00 06/17/20 07:50 36.2 06/17/20 07:29 94 Nasal Cannula 3.00 06/17/20 07:00 54 37 149/85 (106) 96 Nasal Cannula 1.00 06/17/20 07:00 54 06/17/20 06:00 46 24 149/94 (112) 95 Nasal Cannula 3.00 06/17/20 05:00 46 31 136/38 (70) 94 Nasal Cannula 3.00 I & O 06/18/20 07:00 Intake Total 2445 ml Output Total 1500 ml Balance 945 ml Height & Weight Height: 5'8.00" Weight: 262lbs. oz. 118.074987dv; 44.44 BMI Method: General Appearance: No Apparent Distress, WD/WN HEENT: PERRL/EOMI, Normal ENT Inspection, Other (mucous membranes dry) Neck: Normal Inspection Respiratory: Crackles (both bases), Decreased Breath Sounds Cardiovascular: Regular Rate, Rhythm, No Edema, No Murmur, Normal Peripheral Pulses Capillary Refill: Less Than 3 Seconds Peripheral Pulses: 2+ Radial Pulses (R) Extremity: Normal Inspection, No Calf Tenderness, No Pedal Edema, Other (tenderness around the musculature inferior and medial to the left scapula) Neurologic/Psychiatric: Alert, Oriented x3, No Motor/Sensory Deficits, Normal Mood/Affect, chief clinical dietitian II-XII Norm as Tested Results Lab Laboratory Tests 06/16/20 09:11 06/16/20 19:40 06/17/20 04:15 Assessment/Plan Assessment/Plan COVID -19-- symptoms started 8 days ago -remdisivir and s/p convalescent plasma -Pt understands these are EUA medications and consents to use. -Self proning -Decadron 6mg Sinus Bradycardia - down into 30's -cardiology following -Troponin neg x 3 COPD -Breathing treatments -oxygen Hypokalemia -replace and repeat labs NILDA WHALEN DO Jun 18, 2020 04:18
[2020-06-18 05:27] LABS: ALBUMIN 3.4 GM/DL (3.2-4.5); CHLORIDE 109 MMOL/L (98-107); POTASSIUM 3.9 MMOL/L (3.6-5.0); SODIUM 142 MMOL/L (135-145)
[2020-06-18 05:28] LABS: CALCIUM 8.1 MG/DL (8.5-10.1)
[2020-06-18 05:29] LABS: GLUCOSE 131 MG/DL (70-105)
[2020-06-18 05:30] LABS: TOTAL PROTEIN 6.2 GM/DL (6.4-8.2)
[2020-06-18 05:31] LABS: BILIRUBIN,TOTAL 0.4 MG/DL (0.1-1.0); CARBON DIOXIDE 23 MMOL/L (21-32)
[2020-06-18 05:33] LABS: ALKALINE PHOSPHATASE 72 U/L (40-136); CREATININE SERUM 0.79 MG/DL (0.60-1.30); GFR ESTIMATED > 60; PHOSPHORUS 1.9 MG/DL (2.3-4.7)
[2020-06-18 05:34] LABS: BUN/CREATININE RATIO 27
[2020-06-18 05:36] LABS: ALANINE AMINOTRANSFERASE 52 U/L (0-55); MAGNESIUM 1.9 MG/DL (1.6-2.4)
[2020-06-18] MEDS: POTASSIUM CL 10MEQ/50ML IVPB 50 ML IV SCH (05:40)
[2020-06-18] MEDS: MAGNESIUM 1 GM/100 ML IVPB 100 ML IV SCH (05:40)
[2020-06-18] MEDS: KCL 20 MEQ TAB (K-DUR) PO SCH (05:40)
[2020-06-18] MEDS: TROSPIUM 20 MG (SANCTURA) TAB PO SCH ×2 (06:18→16:20)
[2020-06-18] MEDS ORDERED: SODIUM PHOSPHATE INJ 30 MM in NS (IVPB) 250 ML IV NR (08:45)
[2020-06-18] MEDS: ADVAIR HFA 115/21 MCG INHALER 8 GM IH SCH ×2 (09:58→18:55)
[2020-06-18] MEDS: VITAMIN D3 25 MCG (1,000 UNITS) TABLET PO SCH (10:02)
[2020-06-18] MEDS: FLUTICASONE NASAL SPRAY (FLONASE) 16 GM BTL NS SCH (10:02)
[2020-06-18] MEDS: ASPIRIN 81 MG CHEW (CHILDREN'S ASA) PO SCH (10:03)
[2020-06-18] MEDS: PANTOPRAZOLE 40 MG (PROTONIX) TAB PO SCH (10:03)
[2020-06-18] MEDS: CEFEPIME 2,000 MG/SWFI 20 ML IV PUSH IV SCH ×4 (10:03→22:40)
[2020-06-18] MEDS: REMDESIVIR INJ (NON-FORMULARY) 100 MG in NS (IVPB) 230 ML IV SCH (15:00)
--- NOTE | 2020-06-18 15:43 | Cardiology Progress Note ---
Cardiology SOAP Progress Note Subjective: improved bradycardia. Objective: I&O/Vital Signs 06/18/20 06/18/20 06/18/20 06/18/20 03:58 04:00 04:47 05:00 Temp 35.9 Pulse 39 48 Resp 23 23 B/P (MAP) 127/69 (88) 129/82 (98) Pulse Ox 91 95 92 O2 Delivery Nasal Cannula Nasal Cannula Nasal Cannula O2 Flow Rate 3.00 3.00 3.00 06/18/20 06/18/20 06/18/20 06/18/20 06:00 07:00 07:00 07:27 Temp 36.2 Pulse 44 66 75 Resp 27 22 B/P (MAP) 135/74 (94) 158/94 (115) Pulse Ox 94 93 O2 Delivery Nasal Cannula Nasal Cannula O2 Flow Rate 3.00 3.00 06/18/20 06/18/20 06/18/20 06/18/20 07:27 08:00 09:00 09:58 Pulse 68 65 Resp 34 27 B/P (MAP) 151/112 (125) 134/76 (95) Pulse Ox 94 93 95 97 O2 Delivery Nasal Cannula Nasal Cannula Nasal Cannula Nasal Cannula O2 Flow Rate 1.00 3.00 3.00 1.00 06/18/20 06/18/20 06/18/20 06/18/20 10:00 11:00 12:00 12:31 Temp 36.2 Pulse 58 62 64 Resp 20 B/P (MAP) 141/82 (101) 156/75 (102) Pulse Ox 97 96 96 O2 Delivery Nasal Cannula Room Air Room Air O2 Flow Rate 3.00 06/18/20 00:00 Intake Total 805 ml Output Total 1050 ml Balance -245 ml Weight (Pounds): 262 Weight (Calculated Kilograms): 118.836495 Constitutional: AAO x 3, well-developed Cardiovascular: other (not in respiratory distress.) Neurologic/Psychiatric: no motor/sensory deficits, alert, normal mood/affect, oriented x 3 Skin: normal color, warm/dry Results/Procedures: Labs Laboratory Tests 06/17/20 18:00: Troponin I < 0.028 06/18/20 04:50: Sodium Level 142, Potassium Level 3.9, Chloride Level 109H, Carbon Dioxide Level 23, Anion Gap 10, Blood Urea Nitrogen 21H, Creatinine 0.79, Estimat Glomerular Filtration Rate > 60, BUN/Creatinine Ratio 27, Glucose Level 131H, Calcium Level 8.1L, Corrected Calcium 8.6, Phosphorus Level 1.9L, Magnesium Level 1.9, Total Bilirubin 0.4, Aspartate Amino Transf (AST/SGOT) 43H, Alanine Aminotransferase (ALT/SGPT) 52, Alkaline Phosphatase 72, Total Protein 6.2L, Albumin 3.4 Microbiology 06/16/20 MRSA Screen - Final, Complete MRSA not isolated 06/16/20 Blood Culture - Preliminary, Resulted No growth A/P: Assessment/Dx: acute respiratory failure, Active COVID-19 infection, Sinus bradycardia, PVCs, COPD, Hypokalemia, Weight loss, moderate CAD Plan: acute respiratory failure, Active COVID-19 infection, on remdesivir, decadron, plasma. defer to Dr sykes Sinus bradycardia, sinus node depression due to COVID 19 infection. no acute symptoms. improved. continue to follow clinically. PVCs, Cannot treat with BB secondary to sinus bradycardia. Continue to watch clinically. If significant ectopy, may need amiodarone. COPD, Defer to Dr Sykes. Hypokalemia, unclear etiology. Weight loss, defer to primary team. moderate CAD, negative EKG and serial troponin. Previous Cath in 2013 showed moderate LAD disease. Thank you for your consultation. Please call me if you have any questions. Ariel Recinos MD, FACP, FACC, FSCAI, FHRS, CCDS Interventional Cardiology Cardiac Electrophysiology Vascular Medicine and Endovascular Interventions Focused Exam Lactate Level 06/16/20 09:11: Lactic Acid Level 1.39 Time of Focused Exam: 12:35 Michael RECINOS MD Jun 18, 2020 15:43
[2020-06-18] MEDS: MONTELUKAST 10 MG (SINGULAIR) TAB PO SCH (20:29)
[2020-06-18] MEDS ORDERED: WATER (STERILE) FOR INJECTION 20 ML ONE (22:27)
[2020-06-18] MEDS ORDERED: CEFEPIME 2 GM (MAXIPIME) VIAL ONE (22:27)
[2020-06-19] MEDS: ENOXAPARIN 40 MG/0.4 ML (LOVENOX) SYR SC SCH ×2 (02:04→12:52)
[2020-06-19 04:00] VITALS: BP 162/79
[2020-06-19] MEDS: TROSPIUM 20 MG (SANCTURA) TAB PO SCH (06:09)
[2020-06-19] MEDS: POTASSIUM CL 10MEQ/50ML IVPB 50 ML IV SCH (06:13)
[2020-06-19] MEDS: MAGNESIUM 1 GM/100 ML IVPB 100 ML IV SCH (06:13)
[2020-06-19] MEDS: KCL 20 MEQ TAB (K-DUR) PO SCH (06:14)
[2020-06-19 06:37] LABS: BUN/CREATININE RATIO 27; CALCIUM 8.1 MG/DL (8.5-10.1); CARBON DIOXIDE 22 MMOL/L (21-32); CHLORIDE 108 MMOL/L (98-107); CREATININE SERUM 0.82 MG/DL (0.60-1.30); GFR ESTIMATED > 60; GLUCOSE 118 MG/DL (70-105); MAGNESIUM 1.8 MG/DL (1.6-2.4); PHOSPHORUS 2.5 MG/DL (2.3-4.7); POTASSIUM 3.6 MMOL/L (3.6-5.0); SODIUM 141 MMOL/L (135-145)
[2020-06-19] MEDS ORDERED: KCL 20 MEQ TAB (K-DUR) PO ONE (07:00)
[2020-06-19] MEDS: ADVAIR HFA 115/21 MCG INHALER 8 GM IH SCH (07:23)
[2020-06-19 08:00] VITALS: BP 191/89
[2020-06-19] MEDS: ASPIRIN 81 MG CHEW (CHILDREN'S ASA) PO SCH (08:38)
[2020-06-19] MEDS: VITAMIN D3 25 MCG (1,000 UNITS) TABLET PO SCH (08:38)
[2020-06-19] MEDS: PANTOPRAZOLE 40 MG (PROTONIX) TAB PO SCH (08:38)
--- NOTE | 2020-06-19 11:24 | Physician Query Clarification ---
PQ-Conflicting Diagnosis Admission/Discharge Admission Date: Jun 16, 2020 at 12:05 Discharge Date: Dr. Sykes The medical record reflects the following clinical scenario: History/Risk Factors: COVID 19 Hypoxia COPD Clinical Findings:06/16/20 Triage BP 101/64, T 38.9, P 62, Resp 20, O2 sat on Room air 88%. Treatment: Oxygen 3-4 L nasal cannula. Question: Do you agree with the impression of the Acute Respiratory Failure per Dr. Gar consult. Please document a response in Progress Note or Discharge Summary. 1. Yes 2. No 3. Other, with explanation of clinical findings 4. Clinically undetermined, no explanation for clinical findings. Please remember a lack of response to the above will prompt a phone page by CDI/Coding staff. In responding to this query, please exercise your independent professional judgment. The purpose of this communication is to more accurately reflect the complexity of your patients condition. The fact that a question is asked does not imply that any particular answer is desired or expected. Thank you for your timely response to this clarification. Requestors name: Viviana Lopez [facility], CCDS Phone # ext [phone] or [phone] THIS PHYSICIAN QUERY FORM IS A PERMANENT PART OF THE MEDICAL RECORD VIVIANA LOPEZ Jun 19, 2020 11:24 EDDIE DUNBAR Jul 05, 2020 10:52
[2020-06-19 12:00] VITALS: BP 185/94
[2020-06-19] MEDS: REMDESIVIR INJ (NON-FORMULARY) 100 MG in NS (IVPB) 230 ML IV SCH (12:52)
[2020-06-19] MEDS ORDERED: PRED10TA22 PO (15:04)
--- NOTE | 2020-06-19 15:50 | NUR ---
PT DISCHARGED TO HOME. PT SIGNED DC PAPERWORK AND GIVEN PT SUMMARY AND EDUCATION BY THIS RN. PT ALSO TOLD RN HOW LONG HE HAD TO QUARANTINE AND RN WENT OVER WHAT QUARANTINE WITH HIM AGAIN. THIS RN AND FELLOW RN LEXIE, TOOK PT DOWN IN W/C, I WAS THE CLEAN PERSON AND LEXIE WAS THE DIRTY. PTS PICKED HIM UP AT [facility] IN PRIVATE VEHICLE.
--- NOTE | 2020-06-27 08:21 | Diagnostic Imaging Report ---
EXAMINATION: CT angiography of the chest. TECHNIQUE: Contrast enhanced thin section helical images were obtained through the chest with intravenous contrast timed for the optimal opacification of the arterial structures per CTA protocol. Post-processing, reconstructions and interpretation of angiographic images of the vessels was performed. 3D MIP reconstructions were performed and reviewed. All CT scans use one or more of the following dose optimizing techniques: automated exposure control, MA and/or KvP adjustment based on a patient size and exam type, or iterative reconstruction. HISTORY: PE suspected, high prob COMPARISON: Chest radiograph 06/16/2020 FINDINGS: Vascular: No filling defects within the pulmonary arteries. Thoracic aorta is normal in caliber. Thyroid: The thyroid is normal. Mediastinum: Heart size is normal without significant pericardial effusion. There are a few mildly enlarged mediastinal lymph nodes the largest subcarinal lymph node measuring 2.1 x 1.2 cm (series 2 image 75). Lungs and airways: Patchy groundglass consolidation throughout both lungs greatest within the lower lobes. No pleural effusion or pneumothorax. The airways are normal. Upper abdomen: The subphrenic structures are normal. Musculoskeletal: Degenerative changes of the spine without suspicious osseous lesion or compression fracture. Mild bilateral gynecomastia. IMPRESSION: 1. No findings of pulmonary embolus. 2. Patchy consolidation throughout both lungs compatible with a multifocal pneumonia. Reported patient history of Covid positive disease. 3. Likely reactive mediastinal lymphadenopathy. Dictated by: Dictated on workstation # [id number]
--- NOTE | 2020-07-03 15:22 | Discharge Summary ---
Discharge Summary Hospital Course Was the Problem List Reviewed?: Yes Problems/Dx: (1) Acute respiratory failure due to COVID-19 Status: Acute Hospital Course Date of Admission: Jun 16, 2020 at 12:05 Admission Diagnosis : acute respiratory failure due to COVID-19 Family Physician/Provider: Sarika Hodges DO Date of Discharge: 07/03/20 Discharge Diagnosis: acute respiratory failure due to COVID-19 Hospital Course: Gonzales Johnson is a 69 year old male who was admitted with acute respiratory failure due to COVID-19. He was treated with Decadron, Remdesivir, and convalescent plasma. His course was complicated by bradycardia and was evaluated by cardiology. They believed this was due to COVID and no intervention was warranted. His symptoms improved. His oxygen requirement resolved. He was discharged in stable condition. She should follow-up with his primary care physician in a week or two. Labs and Pending Lab Test: Microbiology 06/16/20 MRSA Screen - Final, Complete MRSA not isolated 06/16/20 Blood Culture - Final, Complete No growth Home Meds Active Prednisone 10 Mg Tab.ds.pk 10 Mg PO DAILY Take 6 tabs(60mg)daily,decrease by 1 tab(10MG)daily. Reported Tylenol (Acetaminophen) 325 Mg Capsule 650 Mg PO Q6H PRN Fish Oil 1,200 mg Fish Oil (Fish Oil/Dha/Epa) 1 Each Capsule 1 Each PO DAILY Vitamin C (Ascorbic Acid) 250 Mg Tab.chew 250 Mg PO DAILY Ventolin Hfa (Albuterol Sulfate) 18 Gm Hfa.aer.ad 2 Puff INH Q4H PRN Hydrochlorothiazide 12.5 Mg Tablet 12.5 Mg PO DAILY Doxazosin Mesylate 2 Mg Tablet 2 Mg PO DAILY Cetirizine HCl 10 Mg Tablet 10 Mg PO HS Vitamin B Complex 1 Each Tablet 1 Each PO DAILY Gummi Bear Multivitamin (Multivitamin) 1 Each Tab.chew 1 Each PO DAILY Vitamin D3 (Cholecalciferol (Vitamin D3)) 50 Mcg Capsule 50 Mcg PO DAILY Vesicare (Solifenacin Succinate) 5 Mg Tablet 5 Mg PO DAILY Coq-10 (Ubidecarenone) 100 Mg Capsule 100 Mg PO DAILY Symbicort 160-4.5 Mcg Inhaler (Budesonide/Formoterol Fumarate) 10.2 Gm Hfa.aer.ad 2 Puff IH BID Fexofenadine HCl 180 Mg Tablet 180 Mg PO DAILY PRN Aspirin 81 Mg Tab.chew 81 Mg PO DAILY Omeprazole 40 Mg Capsule.dr 40 Mg PO DAILY Montelukast Sodium 10 Mg Tablet 10 Mg PO HS Fluticasone Propionate 16 Gm [place].susp 2 Spr NSEACH BID Ibuprofen 400 Mg Tablet 400 Mg PO Q6H PRN Atorvastatin Calcium 20 Mg Tablet 20 Mg PO DAILY Assessment/Pt Instructions take medications as prescribed. Follow-up with your primary care physician. Discharge Planning: <30 minutes discharge planning Discharge Instructions Discharge Diet: No Restrictions Activity as Tolerated: Yes Discharge Physical Examination Allergies: Coded Allergies: minocycline (Verified Allergy, Unknown, RASH AND A COUGH, 06/13/15) Discharge Summary Date of Admission Jun 16, 2020 at 12:05 Date of Discharge Jun 19, 2020 at 15:50 Discharge Date: Jun 19, 2020 Discharge Time: 1600 Admission Diagnosis acute respiratory failure due to COVID-19 Consults/Procedures Consulations Cardiology Discharge Diagnosis (1) Acute respiratory failure due to COVID-19 Status: Acute Clinical Quality Measures DVT/VTE Risk/Contraindication: Risk Factor Score Per Nursin RFS Level Per Nursing on Admit: 3=High JEMIMA GOODWIN MD Jul 03, 2020 15:10
== END 2020-06-19 15:50 | disposition home or self-care (01) | DRG 177 ==
LOC: EDUNIT# 08:58 → ER 08:59 → ICU 12:05 → 4TH 06-18 10:58
PROVIDERS: ADMIT Family Medicine; ATTEND Family Medicine
PROC: XW033E5 Introduction of Remdesivir Anti-infective into Peripheral Vein, Percutaneous Approach, New Technology Group 5 (ICD-10-PCS; principal; 2020-06-16)
PROC: XW13325 Transfusion of Convalescent Plasma (Nonautologous) into Peripheral Vein, Percutaneous Approach, New Technology Group 5 (ICD-10-PCS; 2020-06-16)
DX: U07.1 COVID-19 (principal); J96.01 Acute respiratory failure with hypoxia; R00.1 Bradycardia, unspecified; I95.9 Hypotension, unspecified; R63.4 Abnormal weight loss; E86.1 Hypovolemia; E87.6 Hypokalemia; M25.512 Pain in left shoulder; J44.9 Chronic obstructive pulmonary disease, unspecified; I25.10 Atherosclerotic heart disease of native coronary artery without angina pectoris; E78.00 Pure hypercholesterolemia, unspecified; I10 Essential (primary) hypertension; K21.9 Gastro-esophageal reflux disease without esophagitis; G47.30 Sleep apnea, unspecified; I49.3 Ventricular premature depolarization; M19.91 Primary osteoarthritis, unspecified site; Z87.891 Personal history of nicotine dependence
CPT/HCPCS: 36415; 71045; 71275; 80048; 80053; 82728; 83605; 83615; 83735; 84100; 84145; 84484; 85025; 85379; 85610; 85730; 86141; 86900; 86901; 87040; 87081; 93005; 94640; 94760; 96361; 96374; 96375

== ENCOUNTER → 2020-08-04 | Outpatient (CLI) | payer MEDICARE, OTHER ==
[~2020-08-04] MED LIST changes: +ACET325C7 PO; +ALBU18HF2 INH; +ASCO250T17 PO; +CETI10TA17 PO; +CHOL200074 PO; +DOXA2TAB2 PO; +FISH1CAP15 PO; +HOLD METFORMIN - RECEIVED CONTRAST 20 ML VIAL IV SCH; +HYDR12.56 PO; +IOHEXOL 350 MG/ML 100 ML (OMNIPAQUE 350) VIAL IV ONE; +MULT-192 PO; +NS 100 ML (IVPB) BAG IV ONE; +PRED10TA22 PO; +RT-ALBUTEROL SULF 2.5 MG/3 ML PRE-MIX VIAL INH ONE; +VITA1TAB17 PO
[2020-08-04 09:09] LABS: BUN/CREATININE RATIO 16; CREATININE SERUM 0.92 MG/DL (0.60-1.30); GFR ESTIMATED > 60
--- NOTE | 2020-08-04 10:26 | Diagnostic Imaging Report ---
PROCEDURE: CT chest with contrast only. TECHNIQUE: Multiple contiguous axial images were obtained through the chest after administration of intravenous contrast. Auto Exposure Controls were utilized during the CT exam to meet ALARA standards for radiation dose reduction. INDICATION: Asthma. COMPARISON: 06/16/2020. FINDINGS: Bilateral 5 lobe scattered groundglass opacities have substantially improved in the interim and the residual disease is most notable in the left upper lobe lingular segment in the dependent right lower lobes. Severity of disease, however is substantially improved. No findings of pneumatocele. Air cystic bronchiectasis or other parenchymal destructive process. There is no intraluminal pulmonary arterial filling defect. There were no findings of pulmonary arterial embolus. No evidence for elevated right heart pressures or right heart strain. The aorta is patent and nonaneurysmal. There is no pleural effusion or pneumothorax. The visualized upper abdomen showed no acute appearing abnormality. IMPRESSION: Significant improvements in groundglass pulmonary infiltrates without effusion or abscess. Negative for PE or adverse development. Dictated by: Dictated on workstation # [id number]
== END ==
LOC: RT 09:45
PROVIDERS: ATTEND Nurse Practitioner Family
DX: U07.1 COVID-19 (principal); J45.909 Unspecified asthma, uncomplicated; G47.33 Obstructive sleep apnea (adult) (pediatric)
CPT/HCPCS: 36415; 71260; 82565; 84520; 94060; 94726; 94729